=== PATIENT | female | born 1995 | race African-American/Black ===

== ENCOUNTER 2017-01-17 21:21 | Emergency (ER) | payer BC ==
[~2017-01-17] VITALS: Ht 165.1 cm; Wt 52.2 kg
[2017-01-17 21:43] VITALS: TEMP 36.7; Ht 165.1 cm; Wt 52.2 kg
[2017-01-17] MEDS ORDERED: SODIUM CHLORIDE 0.9% 1000ML 1,000 ML IV STA (21:53)
[2017-01-17] MEDS ORDERED: METF-383 PO (22:05)
[2017-01-17] MEDS ORDERED: BCPILLS PO (22:05)
[2017-01-17] MEDS ORDERED: SPIR100T PO (22:05)
[2017-01-17 22:11] LABS: BASO % 0.5 %; BASO ABS # 0.05 K/uL (0-0.2); COMPLETE YES; EOS % 4.5 %; HEMATOCRIT 39.9 % (37-47); IG% 0.2 %; LYMPH % 28.4 %; LYMPH ABS # 2.59 K/uL (1.2-3.4); MEAN CELL VOLUME 92.8 fL (80-100); MEAN CORPUSCULAR HEMOGLOBIN 31.4 pg (25-34); MEAN CORPUSCULAR HGB CONC 33.8 g/dl (32-36); MEAN PLATELET VOLUME 8.6 fL (7.4-10.4); MONO % 9.6 %; NEUT % 56.8 %; PLATELET COUNT 292 K/uL (130-400); WHITE BLOOD COUNT 9.12 K/uL (4.8-10.8)
[2017-01-17 22:29] LABS: BLOOD UREA NITROGEN 10 mg/dl (7-18); BUN/CREATININE RATIO 16.1 (10-20); CARBON DIOXIDE 28 mmol/L (21-32); CHLORIDE 106 mmol/L (98-107); CREATININE 0.61 mg/dl (0.60-1.20); GLUCOSE 86 mg/dl (70-99); POTASSIUM 3.9 mmol/L (3.5-5.1); SODIUM 142 mmol/L (136-145)
[2017-01-17 22:33] LABS: URINE APPEARANCE CLEAR (CLEAR); URINE BILIRUBIN NEG (NEG); URINE COLOR YELLOW; URINE NITRITE NEG (NEG); URINE SPECIFIC GRAVITY 1.025 (1.000-1.030); UROBILINOGEN NEG (NEG)
[2017-01-17 22:35] LABS: PREG INTERNAL NEGATIVE QC NEG CLEAR BACKGROUND; PREG INTERNAL POSITIVE QC POS CONTROL LINE
[2017-01-17 22:36] LABS: MANUAL MICROSCOPIC REQUIRED? NO; REVIEW REQ? NO
--- NOTE | 2017-01-18 00:22 | EMERGENCY ROOM VISIT NOTE ---
History Report prepared by Scribe: Anayeli Jones Under the Supervision of: Dr. Von Camarena D.O. First contact with patient: 21:47 Chief Complaint: ABDOMINAL PAIN Stated Complaint: INTENSE STOMACH PAIN ON RIGHT SIDE History of Present Illness The patient is a 21 year old female who presents to the Emergency Room with complaints of persistent right sided abdominal pain that started approximately 1 hour prior to arrival. She rates her discomfort as a 7/10 in severity. She admits to a history of PCOS but states she has never experienced pain like today 's before. She called her Mother, who is a nurse, and states she told her to come to the ED for further evaluation. She also admits to nausea and a decreased appetite, but she has not vomited. She denies any back pain. Her last menstrual period was 2 and a half weeks ago and normal. She is currently sexually active. 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 A total of 10 systems reviewed and were otherwise negative. Past Medical & Surgical Medical Problems: (1) PCOS (polycystic ovarian syndrome) Social History Smoking Status: Never Smoker Alcohol Use: occasionally Drug Use: none Marital Status: single Housing Status: lives with roommate Occupation Status: [employer] student Current/Historical Medications Scheduled Control Pills ( Control Pills), 1 TAB PO DAILY Metformin Hcl (Glucophage), 850 MG PO DAILY Spironolactone (Aldactone), 100 MG PO DAILY Allergies Coded Allergies: Clindamycin (Verified Allergy, Intermediate, Hives, 01/17/17) Physical Exam Vital Signs Date Time Temp Pulse Resp B/P Pulse Ox O2 Delivery O2 Flow Rate FiO2 01/17/17 23:14 93 18 131/75 100 Room Air 01/17/17 21:43 36.7 73 18 116/79 98 Room Air Physical Exam CONSTITUTIONAL/VITAL SIGNS: Reviewed / noted above. GENERAL: Non-toxic in appearance. INTEGUMENTARY: Warm, dry, and [place]. HEAD: Normocephalic. EYES: without scleral icterus or trauma. ENT/OROPHARYNX: clear and moist. LYMPHADENOPATHY/NECK: Is supple without lymphadenopathy or meningismus. RESPIRATORY: Lungs clear and equal. CARDIOVASCULAR: Regular rate and rhythm. GI/ABDOMEN: Soft, tenderness to palpation in RLQ. No organomegaly or pulsatile mass. No rebound or guarding. Normal bowel sounds. EXTREMITIES: Warm and well perfused. BACK: No CVA tenderness. NEUROLOGICAL: Intact without focal deficits. PSYCHIATRIC: normal affect. MUSCULOSKELETAL: Normally developed with good muscle tone. Medical Decision & Procedures ER Provider Diagnostic Interpretation: This CT scan was reviewed and interpreted by the radiologist and reviewed by myself. CT ABDOMEN/PELVIS Limited non-contrast evaluation. No evidence of solid organ abnormality. No evidence of bowel obstruction. Visualized appendix normal. No diverticulitis. Fluid-filled loops of small bowel may indicate nonspecific enteritis. Urinary bladder and uterus are within normal limits. Mild low-density free pelvic fluid may be physiologic or related to cyst rupture. No acute osseous findings. Radiologist: Dr. Mary Juarez MD Phone: [phone] This Ultrasound was reviewed and interpreted by the radiologist and reviewed by myself. US PELVIS: The uterus measures 6.9 x 4.5 x 4.1 cm with 7 mm thick endometrial echo complex. There is no abnormal myometrial mass. There is mild free pelvic fluid. Right ovary measures 23 x 19 x 12 mm with Doppler flow. Left ovary measures 53 x 36 x 37 mm with Doppler flow. There is a 27 x 28 x 28 mm complex left ovarian cyst without vascularity having the appearance of a hemorrhagic cyst. There is no evidence of abnormal adnexal mass. Radiologist: Mary Juarez M.D. Laboratory Results 01/17/17 22:00 Red Blood Count 4.30, Mean Corpuscular Volume 92.8, Mean Corpuscular Hemoglobin 31.4, Mean Corpuscular Hemoglobin Concent 33.8, Mean Platelet Volume 8.6, Neutrophils (%) (Auto) 56.8, Lymphocytes (%) (Auto) 28.4, Monocytes (%) (Auto) 9.6, Eosinophils (%) (Auto) 4.5, Basophils (%) (Auto) 0.5, Neutrophils # (Auto) 5.17, Lymphocytes # (Auto) 2.59, Monocytes # (Auto) 0.88, Eosinophils # (Auto) 0.41, Basophils # (Auto) 0.05 01/17/17 22:00 Test 01/17/17 21:58 01/17/17 22:00 Urine Color YELLOW Urine Appearance CLEAR (CLEAR) Urine pH 7.0 (4.5-7.5) Urine Specific [place] 1.025 (1.000-1.030) Urine Protein NEG (NEG) Urine Glucose (UA) NEG (NEG) Urine Ketones NEG (NEG) Urine Occult Blood NEG (NEG) Urine Nitrite NEG (NEG) Urine Bilirubin NEG (NEG) Urine Urobilinogen NEG (NEG) Urine Leukocyte Esterase NEG (NEG) Urine Test NEG (NEG) White Blood Count 9.12 K/uL (4.8-10.8) Red Blood Count 4.30 M/uL (4.2-5.4) Hemoglobin 13.5 g/dL (12.0-16.0) Hematocrit 39.9 % (37-47) Mean Corpuscular Volume 92.8 fL (80-100) Mean Corpuscular Hemoglobin 31.4 pg (25-34) Mean Corpuscular Hemoglobin Concent 33.8 g/dl (32-36) Platelet Count 292 K/uL (130-400) Mean Platelet Volume 8.6 fL (7.4-10.4) Neutrophils (%) (Auto) 56.8 % Lymphocytes (%) (Auto) 28.4 % Monocytes (%) (Auto) 9.6 % Eosinophils (%) (Auto) 4.5 % Basophils (%) (Auto) 0.5 % Neutrophils # (Auto) 5.17 K/uL (1.4-6.5) Lymphocytes # (Auto) 2.59 K/uL (1.2-3.4) Monocytes # (Auto) 0.88 K/uL (0.11-0.59) Eosinophils # (Auto) 0.41 K/uL (0-0.5) Basophils # (Auto) 0.05 K/uL (0-0.2) RDW Standard Deviation 42.2 fL (36.4-46.3) RDW Coefficient of Variation 12.5 % (11.5-14.5) Immature Granulocyte % (Auto) 0.2 % Immature Granulocyte # (Auto) 0.02 K/uL (0.00-0.02) Anion Gap 8.0 mmol/L (3-11) Est Creatinine Clear Calc Drug Dose 121.2 ml/min Estimated GFR () > 150.0 Estimated GFR (Non- 130.5 BUN/Creatinine Ratio 16.1 (10-20) Calcium Level 9.0 mg/dl (8.5-10.1) Human Chorionic Gonadotropin, Qual NEG (NEG) Laboratory results as stated above per my review. Medications Administered Medications (Trade) Dose Ordered Sig/Ever Route Start Time Stop Time Status Last Admin Dose Admin Sodium Chloride (Nss 1000ml) 1,000 ml @ 999 mls/hr Q1H1M STAT IV 01/17/17 21:53 01/17/17 22:53 DC 01/17/17 22:07 999 MLS/HR ED Course 2136: Previous medical records were reviewed. The patient was evaluated in room A3. A complete history and physical examination was performed. 2152: NSS 1000 ml @ 999 mls/hr IV. 0010: I reevaluated the patient. She is feeling well. I discussed her results and discharge instructions and she verbalized complete understanding and agreement. Medical Decision Differential considered: pancreatitis, hepatitis, or acute cholecystitis, AAA, UTI, pyelonephritis, kidney stones, appendicitis, diverticulitis, shingles, bowel obstruction mesenteric ischemia, intussusception,hernia, ovarian torsion, ruptured ovarian cyst, ectopic , . This is a 21-year-old female who presents to the ED with a chief complaint of a sudden onset right lower quadrant abdominal pain about an hour prior to her arrival. The patient has a history of PE 0 a speed she reports some associated nausea and vomiting. Her vital signs are normal. Physical exam was noted above. There is some right lower quadrant abdominal tenderness. CBC is normal. PRP is normal. HCG was negative. Urine does not show infection. test is negative. CT scan of the abdomen and pelvis was negative for acute disease. Ultrasound reveals no in PCOS. There is good blood flow. The patient was told the results. She was felt to be stable for discharge. She did not want pain medication. Impression Primary Impression: PCOS (polycystic ovarian syndrome) Scribe Attestation The scribe's documentation has been prepared under my direction and personally reviewed by me in its entirety. I confirm that the note above accurately reflects all work, treatment, procedures, and medical decision making performed by me. Departure Information Dispostion Home / Self-Care Patient Instructions [facility] Additional Instructions Follow-up with your doctor for further care and evaluation in 1-2 days. Return to the emergency department for worsening or new symptoms or any concerns. You have been examined and treated today on an emergency basis only. This is not a substitute for, or an effort to provide, complete comprehensive medical care. It is impossible to recognize and treat all injuries or illnesses in a single emergency department visit. It is therefore important that you follow up closely with your doctor. Call as soon as possible for an appointment.
[2017-01-18 00:37] VITALS: BP 107/65; PULSE 86; O2SAT 97
--- NOTE | 2017-01-18 06:30 | DIAGNOSTIC IMAGING REPORT ---
EXAMINATION: PELVIC ULTRASOUND CLINICAL HISTORY: Right-sided pelvic pain COMPARISON STUDY: None FINDINGS: The uterus measured 6.9 x 4.5 x 4.1 cm. The endometrial stripe measured 7 mm. The right ovary measured 23 x 19 x 12 mm. The left ovary measured 53 x 36 x 37 mm. There is a 28 mm complex cyst likely functional.. There is no ultrasonographic evidence of ovarian torsion. It should be noted that ovarian torsion can be present with normal Doppler ultrasonographic findings. There is a minimal amount of free fluid present. The patient refused endovaginal scanning. IMPRESSION: 28 mm complex left ovarian cyst, likely representing a hemorrhagic cyst Electronically signed by: Keaton Estrada M.D. 01/18/2017 6:28 AM Dictated Date/Time: 01/18/2017 6:26 AM
--- NOTE | 2017-01-18 06:38 | DIAGNOSTIC IMAGING REPORT ---
CT SCAN OF THE ABDOMEN AND PELVIS WITHOUT CONTRAST CLINICAL HISTORY: Sudden onset of right lower quadrant pain COMPARISON STUDY: Pelvic ultrasound dated 01/17/2017 TECHNIQUE: CT scan of the abdomen and pelvis was performed from the lung bases to the proximal femurs. Images are reviewed in the axial, sagittal, and coronal planes. IV contrast was not administered for this examination. CT DOSE: 361.32 mGy.cm FINDINGS: Lower chest: The heart is normal in size and configuration, without pericardial effusion. The lung bases and pleural spaces are clear. Liver: The unenhanced liver is normal in size, contour, and attenuation. There is no intrahepatic biliary ductal dilatation. Gallbladder: Unremarkable. Spleen: Normal in size and attenuation. Pancreas: Unremarkable. Adrenal glands: Unremarkable. Kidneys: No renal, ureteral, or bladder calculi are visualized. Bowel: There are no transition zones indicate bowel obstruction. There is no evidence of acute appendicitis given the limitations of a noncontrast study. There is no evidence of acute diverticulitis Peritoneum: No free air is visualized. There is a small amount of free pelvic fluid Vasculature: The abdominal aorta is normal in course and caliber. Adenopathy: None. Pelvic viscera: The bladder, and pelvic viscera are unremarkable. Skeletal structures: No destructive osseous lesions are seen. IMPRESSION: 1. No evidence of bowel obstruction. No evidence of free air 2. No renal, ureteral, or bladder calculi identified 3. No evidence of acute appendicitis 4. Small amount of free fluid in the pelvis Electronically signed by: Keaton Estrada M.D. 01/18/2017 6:36 AM Dictated Date/Time: 01/18/2017 6:33 AM
== END 2017-01-18 00:38 | disposition home or self-care (01) ==
LOC: C.EDB 21:23 → C.EDA 01-18 00:38
DX: E28.2 Polycystic ovarian syndrome (principal); Z79.3 Long term (current) use of hormonal contraceptives; Z79.899 Other long term (current) drug therapy

== ENCOUNTER 2021-01-17 02:08 | Inpatient (IN) ==
[2021-01-17] MEDS ORDERED: OXYTOCIN 30 UNITS/500 ML BAG IV PRN (02:31)
[2021-01-17] MEDS ORDERED: BUTORPHANOL TARTRATE 1 MG/ML VIAL IV ONE (02:36)
[2021-01-17] MEDS ORDERED: ePHEDrine sulfate 50 MG/ML AMP ONE (02:49)
[2021-01-17] MEDS ORDERED: BUPIVACAINE 0.25% 30 ML VIAL ONE (02:49)
[2021-01-17] MEDS ORDERED: fentaNYL citrate 100 MCG/2 ML VIAL ONE (02:49)
[2021-01-17] MEDS ORDERED: SODIUM CHLORIDE 0.9% INJ 10 ML VIAL ONE (02:49)
[2021-01-17] MEDS ORDERED: fentaNYL 2MCG/ML ROPIVACAINE 1.25MG/ML 100 ML BAG EPI ONE (02:50)
[2021-01-17 02:55] LABS: Hematocrit (blood only) 35.1 % (37-47); Hemoglobin 12.1 g/dL (12.0-16.0); Mean Corpuscular Hgb Conc 34.5 g/dL (32-36); Mean Platelet Volume 9.7 fL (7.4-10.4); Platelet Count 379 K/uL (130-400); RDW Coefficient of Variation 13.1 % (11.5-14.5); RDW Standard Deviation 42.7 fL (36.4-46.3); White Blood Count 12.82 K/uL (4.8-10.8)
[2021-01-17] MEDS: LACTATED RINGER'S 1,000 ML IV PRN ×3 (03:03→15:34)
--- NOTE | 2021-01-17 03:47 | Anesthesiology Consultation ---
Date of Service January 17, 2021 Assessment & Plan Chart Review Chart Review: Acceptable Risk for Labor Epidural Consults Requested none History Height/Weight Height: 5 ft 5 in Weight: 71.668 kg Allergies Allergy/AdvReac Type Severity Reaction Status Date / Time clindamycin Allergy Intermediate Hives Verified 01/15/21 08:51 Sulfa (Sulfonamide Allergy hives Verified 01/15/21 08:51 Antibiotics) Medications Home Medications Medication Instructions Recorded Confirmed Last Taken prenat.vits,akash,uzr-kjmh-glfzk 1 tab PO DAILY 06/12/20 01/16/21 01/16/21 08:00 Active Medications Generic Name Dose Route Start Last Admin Trade Name Freq PRN Reason Stop Dose Admin Lactated Ringer's 1,000 mls @ 125 mls/hr 01/17/21 02:31 01/17/21 03:37 Lr IV 01/19/21 02:30 125 mls/hr .Q8H PRN Infusion L&D Protocol Protocol Past Medical History Medical History No significant past medical history Past Family History Family History Grandmother (Maternal) Heart disease Past Surgical History Surgical History S/P wisdom tooth extraction Social History Smoking Status: Never smoker Hx Alcohol Use: No Hx Substance Use: No Physical Exam Vital Signs Last Vital Signs Temp 37.0 C 01/17/21 02:51 Pulse 96 H 01/17/21 03:44 Resp 18 01/17/21 02:39 BP 115/64 01/17/21 03:44 Pulse Ox 99 01/17/21 03:40 Testing Laboratory Results 01/17/21 02:43
[2021-01-17] MEDS ORDERED: NALOXONE HCL 0.4 MG/1 ML VIAL/CARP IV PRN (03:49)
[2021-01-17] MEDS ORDERED: diphenhydrAMINE 50 MG/ML VIAL IV PRN (03:49)
[2021-01-17] MEDS ORDERED: ePHEDrine sulfate 50 MG/ML AMP IV PRN (03:49)
[2021-01-17] MEDS ORDERED: NALOXONE HCL 1 MG in SODIUM CHLORIDE 0.9% 1000ML 1,000 ML IV PRN (03:49)
--- NOTE | 2021-01-17 05:06 | History & Physical Report ---
Date of Service January 17, 2021 Assessment & Plan (1) Normal labor: Admission and Anticipated Discharge Date Admission Date: January 17, 2021 Admit for labor. Patient now has epidural and is sleeping. Expectant management for now. Fetus category one. Anticipate vaginal delivery. History of Present Illness Chief Complaint: contractions Primary Care Provider: NO PCP Patient is a 25yowf with iup at 39 1/7 weeks who presents back to labor and delivery with increased contractions and increased pain. no vb/lof. +fm. uncomplicated. Was just in labor and delivery and was /-2. Patient established care here, then was in h[facility] for a few weeks and reestablished at 24 weeks. Patient had previously desired an unmedicated and noninterventional but now would like an epidural. labs--A+/ab-/ri/rprnr/hiv-/hep-/gc/ct -/ 28 week gtt failed with nl 2 hr/gbs neg/ declined genetics/cf/sma. Allergies Allergy/AdvReac Type Severity Reaction Status Date / Time clindamycin Allergy Intermediate Hives Verified 01/15/21 08:51 Sulfa (Sulfonamide Allergy hives Verified 01/15/21 08:51 Antibiotics) Home Medications Medication Instructions Recorded Confirmed Type prenat.vits,akash,bhx-xyir-auech 1 tab PO DAILY 06/12/20 01/16/21 History Patient History Medical History No significant past medical history Surgical History S/P wisdom tooth extraction Family History Grandmother (Maternal) Heart disease Social History Smoking Status: Never smoker Hx Alcohol Use: No Hx Substance Use: No Preferred Language: Nepali Senior Clinical Research Associate Required: Voice Beliefs That Will Affect Care: None marital status: marital status details: Braeden (24) [phone] Current Living Situation: Spouse and Other Current Living Situation Comment: [facility] 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 toco--q2-5min efm--120s with mod variability, accels present, no decels Results & Data ([facility]) Vital Signs (Past 12 Hours) Vital Signs Temp Pulse Resp BP Pulse Ox 01/17/21 05:00 79 98 01/17/21 04:59 93 H 114/68 01/17/21 04:55 90 98 01/17/21 04:50 85 98 01/17/21 04:45 83 112/66 98 01/17/21 04:40 82 96 01/17/21 04:35 69 97 01/17/21 04:30 91 H 115/73 98 01/17/21 04:25 88 99 01/17/21 04:20 86 100 01/17/21 04:15 79 127/75 98 01/17/21 04:10 79 99 01/17/21 04:05 89 97 01/17/21 04:00 91 H 98 01/17/21 03:59 85 121/68 01/17/21 03:55 36.9 C 83 18 97 01/17/21 03:51 87 93 01/17/21 03:50 84 18 97 01/17/21 03:45 89 18 98 01/17/21 03:44 96 H 115/64 01/17/21 03:42 85 125/73 01/17/21 03:40 87 18 121/69 99 01/17/21 03:38 78 121/71 01/17/21 03:35 91 H 18 119/75 96 01/17/21 03:34 79 130/81 01/17/21 03:30 80 18 98 01/17/21 03:25 88 98 01/17/21 02:51 37.0 C 01/17/21 02:39 37.0 C 81 18 125/69 01/17/21 02:30 37.0 C 18 01/17/21 02:21 81 125/69 Code Status & VTE Plan VTE Prophylaxis Plan VTE Prophylaxis will be ordered: No Coding Level of Care Code None Diagnoses Normal labor O80; Z37.9
--- NOTE | 2021-01-17 10:56 | Labor Progress Brief Note ---
Date of Service January 17, 2021 Subjective Patient, FOB and Rac Specialist met in room. Patient comfortable with epidural. Assessment & Plan (1) Normal labor: Patient counseled on lack of progress (not going backwards; difference in opinion between examiners / first exam likely difficult with patient reportedly in extreme pain on arrival). Discussed this is not unexpected with contractions so far apart and epidural running / no augmentation thus far. Discussed various options including AROM, pitocin. At this time she refuses all augmentation and requests re-exam in 2 hours. Did discuss risks of prolonged labor for both mom and baby, and possibility that labor has stopped, in which case the eventual plan if we don't augment would be to discontinue epidural and discharge patient home to await resumption of labor at a different time. Nothing has yet occurred that commits her fully to delivery (membranes remain intact and status reassuring). Also discussed that there is no timeline for delivery, but rather advice is based on balancing medical risks and benefits for mother and baby, and all choices rest with her. She voices understanding. Admission and Anticipated Discharge Date Admission Date: January 17, 2021 Physical Exam Physical Exam: 4/100/-2 bulging bag FHT Cat 1 [facility] Q4 Results & Data ([facility]) Vital Signs (Past 12 Hours) Vital Signs Temp Pulse Resp BP Pulse Ox 01/17/21 10:45 83 127/70 97 01/17/21 10:41 87 92 01/17/21 10:40 76 98 01/17/21 10:35 76 100 01/17/21 10:30 71 96 01/17/21 10:25 78 98 01/17/21 10:20 79 99 01/17/21 10:16 82 120/72 01/17/21 10:15 82 98 01/17/21 10:10 75 97 01/17/21 10:07 81 93 01/17/21 10:05 75 97 01/17/21 10:01 84 92 01/17/21 10:00 78 98 01/17/21 09:59 74 115/70 01/17/21 09:55 78 93 01/17/21 09:50 70 98 01/17/21 09:45 83 109/64 97 01/17/21 09:41 80 94 01/17/21 09:40 86 98 01/17/21 09:35 79 98 01/17/21 09:31 70 111/66 01/17/21 09:30 69 97 01/17/21 09:25 80 96 01/17/21 09:22 89 94 01/17/21 09:20 78 97 01/17/21 09:15 77 123/79 98 01/17/21 09:10 75 97 01/17/21 09:05 79 96 01/17/21 09:03 98 H 93 01/17/21 09:00 86 116/67 95 01/17/21 08:55 102 H 97 01/17/21 08:50 81 97 01/17/21 08:45 81 119/75 98 01/17/21 08:40 85 96 01/17/21 08:35 87 98 01/17/21 08:30 79 114/76 97 01/17/21 08:25 80 95 01/17/21 08:20 83 97 01/17/21 08:15 76 117/74 96 01/17/21 08:10 81 96 01/17/21 08:05 75 96 01/17/21 08:01 77 115/74 01/17/21 08:00 76 96 01/17/21 07:55 85 99 01/17/21 07:50 81 97 01/17/21 07:45 77 97 01/17/21 07:44 75 116/73 01/17/21 07:40 78 97 01/17/21 07:38 81 93 01/17/21 07:35 89 96 01/17/21 07:30 89 97 01/17/21 07:29 131 H 116/77 01/17/21 07:25 88 97 01/17/21 07:20 81 98 01/17/21 07:19 98.8 F 80 20 122/70 01/17/21 07:15 80 96 01/17/21 07:14 85 92 01/17/21 07:10 83 98 01/17/21 07:06 88 92 01/17/21 07:05 79 99 01/17/21 07:00 87 107/71 98 01/17/21 06:55 82 97 01/17/21 06:50 88 97 01/17/21 06:46 74 18 114/70 01/17/21 06:45 71 97 01/17/21 06:40 101 H 98 01/17/21 06:39 96 H 92 01/17/21 06:35 88 99 01/17/21 06:31 75 121/69 01/17/21 06:30 89 100 01/17/21 06:25 82 97 01/17/21 06:20 90 98 01/17/21 06:15 75 99 01/17/21 06:14 88 116/64 01/17/21 06:10 96 H 99 01/17/21 06:05 80 98 01/17/21 06:01 71 118/66 01/17/21 06:00 71 98 01/17/21 05:55 84 98 01/17/21 05:50 83 98 01/17/21 05:45 79 98 01/17/21 05:44 96 H 111/69 01/17/21 05:40 75 96 01/17/21 05:35 83 98 01/17/21 05:30 82 18 117/68 97 01/17/21 05:25 73 97 01/17/21 05:20 69 97 01/17/21 05:15 84 120/70 98 01/17/21 05:10 74 98 01/17/21 05:05 82 99 01/17/21 05:00 79 18 98 01/17/21 04:59 93 H 114/68 01/17/21 04:55 90 98 01/17/21 04:50 85 98 01/17/21 04:45 83 112/66 98 01/17/21 04:40 82 96 01/17/21 04:35 69 97 01/17/21 04:30 91 H 18 115/73 98 01/17/21 04:25 88 99 01/17/21 04:20 86 100 01/17/21 04:15 79 18 127/75 98 01/17/21 04:10 79 99 01/17/21 04:05 89 97 01/17/21 04:00 91 H 18 98 01/17/21 03:59 85 121/68 01/17/21 03:55 98.4 F 83 18 97 01/17/21 03:51 87 93 01/17/21 03:50 84 18 97 01/17/21 03:45 89 18 98 01/17/21 03:44 96 H 115/64 01/17/21 03:42 85 125/73 01/17/21 03:40 87 18 121/69 99 01/17/21 03:38 78 121/71 01/17/21 03:35 91 H 18 119/75 96 01/17/21 03:34 79 130/81 01/17/21 03:30 80 18 98 01/17/21 03:25 88 98 01/17/21 02:51 98.6 F 01/17/21 02:39 98.6 F 81 18 125/69 01/17/21 02:30 98.6 F 18 01/17/21 02:21 81 125/69 Coding Level of Care Code None Diagnoses Normal labor O80; Z37.9
[2021-01-17] MEDS: fentaNYL 2MCG/ML ROPIVACAINE 1.25MG/ML 100 ML BAG EPI PRN ×2 (11:57→17:43)
--- NOTE | 2021-01-17 12:50 | Labor Progress Brief Note ---
Date of Service January 17, 2021 Subjective Comfortable with epidural. 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 Thinks her water may have just broken spontaneously; felt a gush! Assessment & Plan Admission and Anticipated Discharge Date Admission Date: January 17, 2021 Physical Exam Physical Exam: Deferred at this time. Given SROM, clearly the labor progress has not stopped completely. Offered exam vs wait for now, and patient was comfortable deferring exam. FHT Cat 1 [place] Q2-4m irreg. Results & Data ([facility]) Vital Signs (Past 12 Hours) Vital Signs Temp Pulse Resp BP Pulse Ox 01/17/21 12:30 73 118/63 97 01/17/21 12:26 84 94 01/17/21 12:25 89 93 01/17/21 12:21 77 94 01/17/21 12:20 78 94 01/17/21 12:16 77 94 01/17/21 12:15 74 130/88 94 01/17/21 12:10 71 96 01/17/21 12:05 75 96 01/17/21 12:02 93 H 93 01/17/21 12:00 76 121/71 97 01/17/21 11:55 74 97 01/17/21 11:50 76 97 01/17/21 11:45 74 116/72 98 01/17/21 11:40 80 97 01/17/21 11:35 74 98 01/17/21 11:30 78 103/61 97 01/17/21 11:25 74 96 01/17/21 11:23 88 92 01/17/21 11:20 81 97 01/17/21 11:15 78 96 01/17/21 11:14 93 H 128/83 94 01/17/21 11:10 79 97 01/17/21 11:05 76 96 01/17/21 11:00 74 98 01/17/21 10:59 98.4 F 75 20 126/79 01/17/21 10:55 75 98 01/17/21 10:50 80 98 01/17/21 10:45 83 127/70 97 01/17/21 10:41 87 92 01/17/21 10:40 76 98 01/17/21 10:35 76 100 01/17/21 10:30 71 96 01/17/21 10:25 78 98 01/17/21 10:20 79 99 0421 10:16 82 120/72 0421 10:15 82 98 01/17/21 10:10 75 97 01/17/21 10:07 81 93 01/17/21 10:05 75 97 01/17/21 10:01 84 92 01/17/21 10:00 78 20 98 01/17/21 09:59 74 115/70 01/17/21 09:55 78 93 01/17/21 09:50 70 98 01/17/21 09:45 83 109/64 97 01/17/21 09:41 80 94 01/17/21 09:40 86 98 01/17/21 09:35 79 98 01/17/21 09:31 70 111/66 01/17/21 09:30 69 97 01/17/21 09:25 80 96 01/17/21 09:22 89 94 01/17/21 09:20 78 97 01/17/21 09:15 77 123/79 98 01/17/21 09:10 75 97 01/17/21 09:05 79 96 01/17/21 09:03 98 H 18 93 01/17/21 09:00 86 116/67 95 01/17/21 08:55 102 H 97 01/17/21 08:50 81 97 01/17/21 08:45 81 119/75 98 01/17/21 08:40 85 96 01/17/21 08:35 87 98 01/17/21 08:30 79 114/76 97 01/17/21 08:25 80 95 01/17/21 08:20 83 97 01/17/21 08:15 76 117/74 96 21 08:10 81 96 21 08:05 75 96 0421 08:01 77 20 115/74 042421 08:00 76 96 01/17/21 07:55 85 99 01/17/21 07:50 81 97 01/17/21 07:45 77 97 21 07:44 75 116/73 0421 07:40 78 97 21 07:38 81 93 21 07:35 89 96 01/17/21 07:30 89 97 01/17/21 07:29 131 H 116/77 01/17/21 07:25 88 97 01/17/21 07:20 81 98 01/17/21 07:19 98.8 F 80 20 122/70 01/17/21 07:15 80 96 01/17/21 07:14 85 92 01/17/21 07:10 83 98 01/17/21 07:06 88 92 01/17/21 07:05 79 99 01/17/21 07:00 87 107/71 98 01/17/21 06:55 82 97 01/17/21 06:50 88 97 01/17/21 06:46 74 18 114/70 01/17/21 06:45 71 97 01/17/21 06:40 101 H 98 01/17/21 06:39 96 H 92 01/17/21 06:35 88 99 01/17/21 06:31 75 121/69 01/17/21 06:30 89 100 01/17/21 06:25 82 97 01/17/21 06:20 90 98 01/17/21 06:15 75 99 01/17/21 06:14 88 116/64 01/17/21 06:10 96 H 99 01/17/21 06:05 80 98 01/17/21 06:01 71 118/66 01/17/21 06:00 71 98 01/17/21 05:55 84 98 01/17/21 05:50 83 98 01/17/21 05:45 79 98 01/17/21 05:44 96 H 111/69 01/17/21 05:40 75 96 01/17/21 05:35 83 98 01/17/21 05:30 82 18 117/68 97 01/17/21 05:25 73 97 01/17/21 05:20 69 97 01/17/21 05:15 84 120/70 98 01/17/21 05:10 74 98 01/17/21 05:05 82 99 01/17/21 05:00 79 18 98 01/17/21 04:59 93 H 114/68 01/17/21 04:55 90 98 01/17/21 04:50 85 98 01/17/21 04:45 83 112/66 98 01/17/21 04:40 82 96 01/17/21 04:35 69 97 01/17/21 04:30 91 H 18 115/73 98 01/17/21 04:25 88 99 01/17/21 04:20 86 100 01/17/21 04:15 79 18 127/75 98 01/17/21 04:10 79 99 01/17/21 04:05 89 97 01/17/21 04:00 91 H 18 98 01/17/21 03:59 85 121/68 01/17/21 03:55 98.4 F 83 18 97 01/17/21 03:51 87 93 01/17/21 03:50 84 18 97 01/17/21 03:45 89 18 98 01/17/21 03:44 96 H 115/64 01/17/21 03:42 85 125/73 01/17/21 03:40 87 18 121/69 99 01/17/21 03:38 78 121/71 01/17/21 03:35 91 H 18 119/75 96 01/17/21 03:34 79 130/81 01/17/21 03:30 80 18 98 01/17/21 03:25 88 98 01/17/21 02:51 98.6 F 01/17/21 02:39 98.6 F 81 18 125/69 01/17/21 02:30 98.6 F 18 01/17/21 02:21 81 125/69 Coding Level of Care Code None
[2021-01-17] MEDS ORDERED: NURSING L&D Epidural Breakthrough Pain Update ONE (17:34)
--- NOTE | 2021-01-17 18:37 | Labor Progress Brief Note ---
Date of Service January 17, 2021 Subjective Comfortable with epidural Assessment & Plan Admission and Anticipated Discharge Date Admission Date: January 17, 2021 Physical Exam Physical Exam: FHT Cat 2 [place] Q2 min ant lip/100/+1 Results & Data ([facility]) Vital Signs (Past 12 Hours) Vital Signs Temp Pulse Resp BP Pulse Ox 01/17/21 18:31 91 H 93 01/17/21 18:30 85 99 01/17/21 18:25 76 99 01/17/21 18:20 81 98 01/17/21 18:18 88 91 01/17/21 18:15 94 H 121/60 100 01/17/21 18:10 78 100 01/17/21 18:05 79 98 01/17/21 18:02 84 91 01/17/21 18:00 78 100 01/17/21 17:59 95 H 118/76 01/17/21 17:55 91 H 97 01/17/21 17:50 89 98 01/17/21 17:45 77 100 01/17/21 17:44 99.0 F 85 20 122/77 01/17/21 17:42 95 H 93 01/17/21 17:40 79 99 01/17/21 17:35 103 H 98 01/17/21 17:30 86 133/81 97 01/17/21 17:29 94 H 93 01/17/21 17:25 85 99 01/17/21 17:20 76 100 01/17/21 17:15 77 123/74 98 01/17/21 17:10 95 H 98 01/17/21 17:05 74 98 01/17/21 17:00 87 100 01/17/21 16:59 94 H 115/79 01/17/21 16:55 81 98 01/17/21 16:50 84 99 01/17/21 16:46 77 20 121/74 01/17/21 16:45 74 99 01/17/21 16:40 71 100 01/17/21 16:35 90 100 01/17/21 16:30 89 123/83 99 01/17/21 16:25 106 H 99 01/17/21 16:24 83 93 01/17/21 16:20 78 99 01/17/21 16:15 74 132/77 98 01/17/21 16:10 74 98 01/17/21 16:05 70 99 01/17/21 16:00 67 99 01/17/21 15:59 66 117/72 01/17/21 15:55 71 99 01/17/21 15:50 71 100 01/17/21 15:45 98.8 F 74 20 136/84 99 01/17/21 15:40 82 99 01/17/21 15:35 76 99 01/17/21 15:32 76 132/70 01/17/21 15:30 90 100 01/17/21 15:25 70 99 01/17/21 15:20 75 99 01/17/21 15:15 72 125/71 100 01/17/21 15:10 71 99 01/17/21 15:05 69 99 01/17/21 15:00 64 118/68 99 01/17/21 14:55 74 99 01/17/21 14:50 81 99 01/17/21 14:45 75 20 119/82 99 01/17/21 14:42 90 89 L 01/17/21 14:40 80 95 01/17/21 14:36 81 92 01/17/21 14:35 64 96 01/17/21 14:30 98.8 F 71 20 139/84 97 01/17/21 14:25 77 97 01/17/21 14:23 78 93 01/17/21 14:20 65 97 01/17/21 14:18 103 H 94 01/17/21 14:15 81 91 01/17/21 14:12 91 H 91 01/17/21 14:10 87 95 01/17/21 14:05 85 98 01/17/21 14:03 96 H 91 01/17/21 14:00 77 83 L 01/17/21 13:57 74 93 01/17/21 13:55 84 92 01/17/21 13:52 74 94 01/17/21 13:50 79 96 01/17/21 13:46 88 92 01/17/21 13:45 70 96 01/17/21 13:44 68 128/80 01/17/21 13:40 69 96 01/17/21 13:38 73 94 01/17/21 13:35 73 95 01/17/21 13:32 74 94 01/17/21 13:30 75 131/84 96 01/17/21 13:27 74 91 01/17/21 13:25 70 96 01/17/21 13:20 71 94 01/17/21 13:15 71 126/80 95 01/17/21 13:11 76 93 01/17/21 13:10 74 97 01/17/21 13:05 68 98 01/17/21 13:01 73 107/61 01/17/21 13:00 73 95 01/17/21 12:57 68 93 01/17/21 12:55 69 97 01/17/21 12:50 68 96 01/17/21 12:46 68 112/59 L 01/17/21 12:45 68 98 01/17/21 12:40 71 97 01/17/21 12:35 71 98 01/17/21 12:30 73 118/63 97 01/17/21 12:26 84 94 01/17/21 12:25 89 93 01/17/21 12:21 77 94 01/17/21 12:20 78 94 01/17/21 12:16 77 94 01/17/21 12:15 74 130/88 94 01/17/21 12:10 71 96 01/17/21 12:05 75 96 01/17/21 12:02 93 H 93 01/17/21 12:00 76 121/71 97 01/17/21 11:55 74 97 01/17/21 11:50 76 97 01/17/21 11:45 74 116/72 98 01/17/21 11:40 80 97 01/17/21 11:35 74 98 01/17/21 11:30 78 103/61 97 01/17/21 11:25 74 96 01/17/21 11:23 88 92 01/17/21 11:20 81 97 01/17/21 11:15 78 96 01/17/21 11:14 93 H 128/83 94 01/17/21 11:10 79 97 01/17/21 11:05 76 96 01/17/21 11:00 74 98 01/17/21 10:59 98.4 F 75 20 126/79 01/17/21 10:55 75 98 01/17/21 10:50 80 98 01/17/21 10:45 83 127/70 97 01/17/21 10:41 87 92 01/17/21 10:40 76 98 04/24/21 10:35 76 100 01/17/21 10:30 71 96 21 10:25 78 98 21 10:20 79 99 0421 10:16 82 120/72 04/21 10:15 82 98 21 10:10 75 97 01/17/21 10:07 81 93 01/17/21 10:05 75 97 01/17/21 10:01 84 92 01/17/21 10:00 78 20 98 0421 09:59 74 115/70 21 09:55 78 93 01/17/21 09:50 70 98 01/17/21 09:45 83 109/64 97 01/17/21 09:41 80 94 01/17/21 09:40 86 98 01/17/21 09:35 79 98 01/17/21 09:31 70 111/66 01/17/21 09:30 69 97 01/17/21 09:25 80 96 01/17/21 09:22 89 94 01/17/21 09:20 78 97 01/17/21 09:15 77 123/79 98 01/17/21 09:10 75 97 01/17/21 09:05 79 96 01/17/21 09:03 98 H 18 93 01/17/21 09:00 86 116/67 95 21 08:55 102 H 97 01/17/21 08:50 81 97 01/17/21 08:45 81 119/75 98 01/17/21 08:40 85 96 01/17/21 08:35 87 98 01/17/21 08:30 79 114/76 97 0424/21 08:25 80 95 21 08:20 83 97 21 08:15 76 117/74 96 21 08:10 81 96 21 08:05 75 96 04/21 08:01 77 20 115/74 0424/21 08:00 76 96 2421 07:55 85 99 21 07:50 81 97 2421 07:45 77 97 0421 07:44 75 116/73 0424/21 07:40 78 97 04/24/21 07:38 81 93 01/17/21 07:35 89 96 01/17/21 07:30 89 97 01/17/21 07:29 131 H 116/77 01/17/21 07:25 88 97 01/17/21 07:20 81 98 01/17/21 07:19 98.8 F 80 20 122/70 01/17/21 07:15 80 96 01/17/21 07:14 85 92 01/17/21 07:10 83 98 01/17/21 07:06 88 92 01/17/21 07:05 79 99 01/17/21 07:00 87 107/71 98 01/17/21 06:55 82 97 01/17/21 06:50 88 97 01/17/21 06:46 74 18 114/70 01/17/21 06:45 71 97 01/17/21 06:40 101 H 98 01/17/21 06:39 96 H 92 Coding Level of Care Code None
--- NOTE | 2021-01-17 19:18 | Labor Progress Brief Note ---
Date of Service January 17, 2021 Subjective Comfortable with epidural Assessment & Plan (1) Normal labor: Begin second stage Admission and Anticipated Discharge Date Admission Date: January 17, 2021 Physical Exam Physical Exam: FHT Cat 1 [place] Q2-4 Cvx 10/100/+1 Results & Data ([facility]) Vital Signs (Past 12 Hours) Vital Signs Temp Pulse Resp BP Pulse Ox 01/17/21 19:15 80 68 L 01/17/21 19:14 111 H 139/78 01/17/21 19:12 98.4 F 18 01/17/21 19:10 125 H 99 01/17/21 19:05 118 H 100 01/17/21 19:03 92 H 93 01/17/21 19:00 86 133/83 100 01/17/21 18:55 85 99 01/17/21 18:50 82 100 01/17/21 18:46 76 127/68 01/17/21 18:45 83 93 01/17/21 18:40 83 100 01/17/21 18:39 76 92 01/17/21 18:35 107 H 99 01/17/21 18:31 91 H 93 01/17/21 18:30 85 99 01/17/21 18:25 76 99 01/17/21 18:20 81 98 01/17/21 18:18 88 91 01/17/21 18:15 94 H 121/60 100 01/17/21 18:10 78 100 01/17/21 18:05 79 98 01/17/21 18:02 84 91 01/17/21 18:00 78 100 01/17/21 17:59 95 H 118/76 01/17/21 17:55 91 H 97 01/17/21 17:50 89 98 01/17/21 17:45 77 100 01/17/21 17:44 99.0 F 85 20 122/77 01/17/21 17:42 95 H 93 01/17/21 17:40 79 99 01/17/21 17:35 103 H 98 01/17/21 17:30 86 133/81 97 01/17/21 17:29 94 H 93 01/17/21 17:25 85 99 01/17/21 17:20 76 100 01/17/21 17:15 77 123/74 98 01/17/21 17:10 95 H 98 01/17/21 17:05 74 98 01/17/21 17:00 87 100 01/17/21 16:59 94 H 115/79 01/17/21 16:55 81 98 01/17/21 16:50 84 99 01/17/21 16:46 77 20 121/74 01/17/21 16:45 74 99 01/17/21 16:40 71 100 01/17/21 16:35 90 100 01/17/21 16:30 89 123/83 99 01/17/21 16:25 106 H 99 01/17/21 16:24 83 93 01/17/21 16:20 78 99 01/17/21 16:15 74 132/77 98 01/17/21 16:10 74 98 01/17/21 16:05 70 99 01/17/21 16:00 67 99 01/17/21 15:59 66 117/72 01/17/21 15:55 71 99 01/17/21 15:50 71 100 01/17/21 15:45 98.8 F 74 20 136/84 99 01/17/21 15:40 82 99 01/17/21 15:35 76 99 01/17/21 15:32 76 132/70 01/17/21 15:30 90 100 01/17/21 15:25 70 99 01/17/21 15:20 75 99 01/17/21 15:15 72 125/71 100 01/17/21 15:10 71 99 01/17/21 15:05 69 99 01/17/21 15:00 64 118/68 99 01/17/21 14:55 74 99 01/17/21 14:50 81 99 01/17/21 14:45 75 20 119/82 99 01/17/21 14:42 90 89 L 01/17/21 14:40 80 95 01/17/21 14:36 81 92 01/17/21 14:35 64 96 01/17/21 14:30 98.8 F 71 20 139/84 97 01/17/21 14:25 77 97 01/17/21 14:23 78 93 01/17/21 14:20 65 97 01/17/21 14:18 103 H 94 01/17/21 14:15 81 91 01/17/21 14:12 91 H 91 01/17/21 14:10 87 95 01/17/21 14:05 85 98 01/17/21 14:03 96 H 91 01/17/21 14:00 77 83 L 01/17/21 13:57 74 93 01/17/21 13:55 84 92 01/17/21 13:52 74 94 01/17/21 13:50 79 96 01/17/21 13:46 88 92 01/17/21 13:45 70 96 01/17/21 13:44 68 128/80 01/17/21 13:40 69 96 01/17/21 13:38 73 94 01/17/21 13:35 73 95 01/17/21 13:32 74 94 01/17/21 13:30 75 131/84 96 01/17/21 13:27 74 91 01/17/21 13:25 70 96 01/17/21 13:20 71 94 01/17/21 13:15 71 126/80 95 01/17/21 13:11 76 93 01/17/21 13:10 74 97 01/17/21 13:05 68 98 01/17/21 13:01 73 107/61 01/17/21 13:00 73 95 01/17/21 12:57 68 93 01/17/21 12:55 69 97 01/17/21 12:50 68 96 01/17/21 12:46 68 112/59 L 01/17/21 12:45 68 98 01/17/21 12:40 71 97 01/17/21 12:35 71 98 01/17/21 12:30 73 118/63 97 01/17/21 12:26 84 94 01/17/21 12:25 89 93 01/17/21 12:21 77 94 01/17/21 12:20 78 94 01/17/21 12:16 77 94 01/17/21 12:15 74 130/88 94 01/17/21 12:10 71 96 01/17/21 12:05 75 96 01/17/21 12:02 93 H 93 01/17/21 12:00 76 121/71 97 01/17/21 11:55 74 97 01/17/21 11:50 76 97 01/17/21 11:45 74 116/72 98 01/17/21 11:40 80 97 01/17/21 11:35 74 98 04/24/21 11:30 78 103/61 97 01/17/21 11:25 74 96 01/17/21 11:23 88 92 01/17/21 11:20 81 97 01/17/21 11:15 78 96 01/17/21 11:14 93 H 128/83 94 01/17/21 11:10 79 97 01/17/21 11:05 76 96 01/17/21 11:00 74 98 01/17/21 10:59 98.4 F 75 20 126/79 01/17/21 10:55 75 98 01/17/21 10:50 80 98 01/17/21 10:45 83 127/70 97 01/17/21 10:41 87 92 01/17/21 10:40 76 98 01/17/21 10:35 76 100 01/17/21 10:30 71 96 01/17/21 10:25 78 98 01/17/21 10:20 79 99 01/17/21 10:16 82 120/72 01/17/21 10:15 82 98 01/17/21 10:10 75 97 01/17/21 10:07 81 93 01/17/21 10:05 75 97 01/17/21 10:01 84 92 01/17/21 10:00 78 20 98 01/17/21 09:59 74 115/70 01/17/21 09:55 78 93 01/17/21 09:50 70 98 01/17/21 09:45 83 109/64 97 01/17/21 09:41 80 94 01/17/21 09:40 86 98 01/17/21 09:35 79 98 01/17/21 09:31 70 111/66 01/17/21 09:30 69 97 01/17/21 09:25 80 96 01/17/21 09:22 89 94 01/17/21 09:20 78 97 01/17/21 09:15 77 123/79 98 01/17/21 09:10 75 97 01/17/21 09:05 79 96 01/17/21 09:03 98 H 18 93 01/17/21 09:00 86 116/67 95 01/17/21 08:55 102 H 97 01/17/21 08:50 81 97 01/17/21 08:45 81 119/75 98 01/17/21 08:40 85 96 01/17/21 08:35 87 98 01/17/21 08:30 79 114/76 97 01/17/21 08:25 80 95 01/17/21 08:20 83 97 01/17/21 08:15 76 117/74 96 01/17/21 08:10 81 96 01/17/21 08:05 75 96 01/17/21 08:01 77 20 115/74 01/17/21 08:00 76 96 01/17/21 07:55 85 99 01/17/21 07:50 81 97 01/17/21 07:45 77 97 01/17/21 07:44 75 116/73 01/17/21 07:40 78 97 01/17/21 07:38 81 93 01/17/21 07:35 89 96 01/17/21 07:30 89 97 01/17/21 07:29 131 H 116/77 01/17/21 07:25 88 97 01/17/21 07:20 81 98 01/17/21 07:19 98.8 F 80 20 122/70 Coding Level of Care Code None Diagnoses Normal labor O80; Z37.9
--- NOTE | 2021-01-17 19:58 | Delivery Summary ---
Vaginal Delivery Summary Date of Service January 17, 2021 Vaginal Delivery Summary DIAGNOSES: 1. Saul intrauterine at 39w1d gestation. 2. Spontaneous onset of labor. 3. Group B Streptococcus Neg. PROCEDURE: Spontaneous vaginal delivery and repair of second degree laceration. SURGEON: Doreen Magaña MD. [employer]ING [employer]: None. ESTIMATED BLOOD LOSS: 300 mL. COMPLICATIONS: None. PLACENTA: Spontaneous and intact with a 3-vessel cord. DISPOSITION: Stable to labor and delivery. DESCRIPTION: The patient pushed well and brought the head to in ROP position. The infant's head was allowed to deliver with contraction force and no further active pushing, with the perineum protected during this time. The shoulders delivered easily with a maternal pushing effort. There was no nuchal cord. The left shoulder was anterior. The shoulders and body delivered without any difficulty, and the was placed on the maternal abdomen. Meconium was suctioned from the mouth and nose. It was vigorous and moving all extremities, and making respiratory efforts. The cervix, vagina and perineum were examined and were found to have a small second degree laceration, which was repaired using vicryl in the usual manner. The cord was doubly clamped by the MD after the 10 minute interval which was requested by the FOB after he was prompted by the patient's land leasing examiner. It was then cut by the FOB. The placenta delivered spontaneously immediately thereafter and was noted to be intact and with a 3VC, but circummarginate insertion and meconium staining, and was sent for exam. The fundus was firm and lochia minimal immediately after delivery. [facility] Vaginal Delivery Charge Vaginal Delivery Codes: 19211 global code for the antepartum, delivery, and post-
[2021-01-17] MEDS ORDERED: HYDROCORTISONE ACETATE 25 MG SUPP PR PRN (21:00)
[2021-01-17] MEDS ORDERED: ACETAMINOPHEN 325 MG TAB PO PRN (21:00)
[2021-01-17] MEDS ORDERED: oxyCODONE/ACETAMINOPHEN 5mg/325mg TAB PO PRN (21:00)
[2021-01-17] MEDS ORDERED: DIPHTHERIA/TETANUS/PERTUSSIS 0.5 ML SYR/VIAL IM ONE (21:00)
[2021-01-17] MEDS ORDERED: BENZOCAINE 20% AER SPR 82.5 GM CAN EXT PRN (21:00)
[2021-01-17] MEDS ORDERED: SUPERCREAM 0.870% 15 GM JAR EXT PRN (21:00)
--- NOTE | 2021-01-17 21:45 | Anesthesia Procedure Note ---
Date of Service January 17, 2021 Anesthesia Post Epidural Note Vital Signs Vital Signs: Temp Pulse Resp BP Pulse Ox 36.8 C 92 H 18 128/84 100 01/17/21 20:35 01/17/21 21:38 01/17/21 21:35 01/17/21 21:38 01/17/21 20:20 Pain Intensity Bilateral Abdomen: Pain Intensity: 0 Notes Mental Status: alert / awake / arousable Nausea / Vomiting: adequately controlled Pain: adequately controlled Airway Patency, RR, SpO2: stable & adequate BP & HR: stable & adequate Hydration State: stable & adequate Neuraxial Anesthesia: was administered and sensory block is resolving Anesthetic Complications: no major complications apparent and Pt Satisfied with anesthetic care Epidural: Removed without complications and With tip intact
[2021-01-17] MEDS: DOCUSATE SODIUM 100 MG CAP PO SCH (22:00)
--- NOTE | 2021-01-18 07:25 | Obstetrical Progress Note ---
Date of Service January 18, 2021 Assessment & Plan (1) state: PPD#1 doing well, routine care. Subjective Ambulation: ambulating normally Voiding: no voiding problems Passing Gas:: Yes Diet Tolerance:: regular diet Lochia:: Small Feeding Type:: breast feeding Physical Exam Constitutional WD/WN, vitals as above Eyes PERRL, conjunctivae normal, anicteric sclerae Neck normal visual inspection Respiratory normal respiratory effort and able to speak in complete sentences; no respiratory distress and no labored breathing Cardiovascular Rate/Rhythm: regular rate and regular rhythm Extremities: no edema Chest (Breasts) Chest: normal inspection of chest Gastrointestinal (Abdomen) Inspection/Auscultation: abdomen normal to inspection Soft, postgravid Psychiatric A+Ox3, euthymic affect Genitourinary OB Exam Abdomen: + fundal height Fundus: + firm and + relation to umbilicus (fundus just below umbilicus); not tender Results & Data ([facility]) Vital Signs (Past 12 Hours) Vital Signs Temp Pulse Pulse Resp BP BP Pulse Ox 01/18/21 04:00 98.1 F 75 16 118/82 98 01/17/21 23:25 98.4 F 86 16 129/79 97 01/17/21 22:38 83 122/68 01/17/21 22:35 99.0 F 18 01/17/21 22:23 86 131/77 01/17/21 22:07 80 127/89 01/17/21 22:05 18 01/17/21 21:52 86 130/80 01/17/21 21:38 92 H 128/84 01/17/21 21:35 18 01/17/21 21:23 85 138/87 01/17/21 21:20 18 01/17/21 21:07 82 122/77 01/17/21 21:05 92 H 18 128/84 01/17/21 20:53 85 131/83 01/17/21 20:50 85 18 138/87 01/17/21 20:39 85 127/64 01/17/21 20:35 98.2 F 18 01/17/21 20:30 87 119/70 01/17/21 20:20 117 H 100 01/17/21 20:15 86 18 100 01/17/21 20:14 122 H 141/84 H 01/17/21 20:10 161 H 96 04/24/21 20:05 123 H 98 01/17/21 20:00 101 H 18 141/82 H 97 01/17/21 19:55 97 H 98 01/17/21 19:53 131 H 88 L 01/17/21 19:50 93 H 98 01/17/21 19:47 112 H 135/81 01/17/21 19:45 94 H 18 98 01/17/21 19:40 107 H 85 L 01/17/21 19:35 84 99 01/17/21 19:30 86 18 99 01/17/21 19:29 111 H 82 L 01/17/21 19:25 92 H 98
[2021-01-18] MEDS: IBUPROFEN 600 MG TAB PO PRN ×2 (07:40→19:08)
[2021-01-18] MEDS: PRENATAL VITAMIN 1 TAB PO SCH (08:28)
[2021-01-18] MEDS: DOCUSATE SODIUM 100 MG CAP PO SCH ×2 (08:28→20:40)
[2021-01-19] MEDS: IBUPROFEN 600 MG TAB PO PRN ×2 (02:05→09:26)
--- NOTE | 2021-01-19 07:22 | Obstetrical Progress Note ---
Date of Service January 19, 2021 Assessment & Plan (1) state: D/C instructions reviewed. Subjective Ambulation: ambulating normally Voiding: no voiding problems Passing Gas:: Yes Diet Tolerance:: regular diet Lochia:: Small Feeding Type:: breast feeding Physical Exam Constitutional WD/WN, vitals as above Eyes PERRL, conjunctivae normal, anicteric sclerae Neck normal visual inspection Respiratory normal respiratory effort and able to speak in complete sentences; no respiratory distress and no labored breathing Cardiovascular Rate/Rhythm: regular rate and regular rhythm Extremities: no edema Chest (Breasts) Chest: normal inspection of chest Gastrointestinal (Abdomen) Inspection/Auscultation: abdomen normal to inspection Soft, postgravid Psychiatric A+Ox3, euthymic affect Genitourinary OB Exam Abdomen: + fundal height Fundus: + firm and + relation to umbilicus (fundus just below umbilicus); not tender Results & Data ([facility]) Vital Signs (Past 12 Hours) Vital Signs Temp Pulse Resp BP Pulse Ox 01/19/21 00:00 97.9 F 73 18 113/72 01/18/21 19:30 98.1 F 83 18 121/81 98
[2021-01-19] MEDS: PRENATAL VITAMIN 1 TAB PO SCH (08:26)
[2021-01-19] MEDS: DOCUSATE SODIUM 100 MG CAP PO SCH (08:27)
== END 2021-01-19 12:25 | disposition home or self-care (01) | DRG 807 ==
LOC: OPB 02:08 → 4S1 02:10 → 4S2 23:00

== ENCOUNTER 2022-11-29 13:24 | Inpatient (IN) ==
[2022-11-29] MEDS ORDERED: LIDOCAINE 1% LOCAL 20 ML VIAL INFIL PRN (13:36)
[2022-11-29] MEDS ORDERED: SODIUM CHLORIDE 0.9% INJ 10 ML VIAL ONE (14:02)
[2022-11-29] MEDS ORDERED: BUPIVACAINE 0.25% 30 ML VIAL ONE (14:02)
[2022-11-29] MEDS ORDERED: fentaNYL citrate 100 MCG/2 ML VIAL ONE (14:02)
[2022-11-29] MEDS ORDERED: LIDOCAINE 2%/EPINEPHRINE 1:200,000 20 ML SDV ONE (14:02)
[2022-11-29] MEDS ORDERED: ePHEDrine sulfate 50 MG/ML AMP ONE (14:02)
[2022-11-29] MEDS ORDERED: fentaNYL 2MCG/ML ROPIVACAINE 1.25MG/ML 100 ML BAG EPI ONE (14:03)
[2022-11-29] MEDS: LACTATED RINGER'S 1,000 ML IV PRN ×2 (14:09→14:58)
[2022-11-29] MEDS ORDERED: PENICILLIN G POTASSIUM 6 MU in DEXTROSE 5% 250 ML IV ONE (14:15)
[2022-11-29 14:20] LABS: Hematocrit (blood only) 38.6 % (37.0-47.0); Mean Corpuscular Hemoglobin 31.3 pg (25.0-34.0); Mean Corpuscular Hgb Conc 33.7 g/dL (32.0-36.0); Mean Corpuscular Volume 92.8 fL (80.0-100.0); Mean Platelet Volume 9.5 fL (9.4-12.4); Platelet Count 282 K/uL (130-400); RDW Coefficient of Variation 13.2 % (11.5-14.5); Red Blood Count 4.16 M/uL (4.20-5.40); White Blood Count 10.71 K/ul (4.8-10.8)
[2022-11-29] MEDS ORDERED: ONDANSETRON INJ 2 MG/ML 2 ML VIAL IV PRN (14:28)
[2022-11-29] MEDS ORDERED: NALBUPHINE HCL INJ 10 MG/ML AMP IV PRN (14:28)
[2022-11-29] MEDS ORDERED: diphenhydrAMINE 50 MG/ML VIAL IV PRN (14:28)
[2022-11-29] MEDS ORDERED: ePHEDrine sulfate 50 MG/ML AMP IV PRN (14:28)
[2022-11-29] MEDS ORDERED: fentaNYL 2MCG/ML ROPIVACAINE 1.25MG/ML 100 ML BAG EPI PRN (14:28)
--- NOTE | 2022-11-29 14:29 | Anesthesiology Consultation ---
Date of Service November 29, 2022 Assessment & Plan (1) Encounter for pre-operative examination: Chart Review Chart Review: Patient NOT seen in Pre Admission Testing and Acceptable Risk for Labor Epidural Consults Requested none History Height/Weight Height: 5 ft 6 in Weight: 70.76 kg Allergies Allergy/AdvReac Type Severity Reaction Status Date / Time clindamycin Allergy Intermediate Hives Verified 11/18/22 07:53 Latex, Natural Rubber Allergy Rash Verified 11/18/22 07:53 Sulfa (Sulfonamide Allergy hives Verified 11/18/22 07:53 Antibiotics) Medications Home Medications Medication Instructions Recorded Confirmed Last Taken prenat.vits,akash,onx-lzmd-noegz 1 tab PO DAILY 06/12/20 11/29/22 11/29/22 Active Medications Generic Name Dose Route Start Last Admin Trade Name Freq PRN Reason Stop Dose Admin Lactated Ringer's 1,000 mls @ 125 mls/hr 11/29/22 13:36 11/29/22 14:09 Lr IV 12/01/22 13:35 999 mls/hr .Q8H PRN Administration L&D Protocol Protocol Penicillin G Potassium 6 mu/ 262 mls @ 262 mls/hr 11/29/22 14:15 11/29/22 14:24 Dextrose IV 11/29/22 15:14 262 mls/hr NOW ONE Administration Past Medical History Medical History (Updated 11/29/22 @ 14:38 by Martha Gentile MD, FACOG) Encounter for anatomic survey No significant past medical history Normal labor Supervision of normal intrauterine in primigravida Varicella vaccination Exercise / Class Metabolic Activity II 4-5 Yardwork/Stairs/Walk up hill Past Family History Family History Grandmother (Maternal) Heart disease Aunt Breast cancer Denies family history of Ovarian cancer Colorectal cancer Past Surgical History Surgical History S/P wisdom tooth extraction Past Anesthesia History No Hx of Anesthesia Complications and No Family Hx of Anesthesia Complications History of PONV No Hx of PONV and No Hx of Motion Sickness Social History Smoking Status: Never smoker Hx Alcohol Use: No Hx Substance Use: No Physical Exam Vital Signs Last Vital Signs Temp 36.6 C 11/29/22 13:35 Pulse 81 11/29/22 14:41 Resp 18 11/29/22 13:35 BP 133/82 11/29/22 13:35 Pulse Ox 96 11/29/22 14:41 Testing Laboratory Results 11/29/22 13:58
--- NOTE | 2022-11-29 14:39 | History & Physical Report ---
Date of Service November 29, 2022 Assessment & Plan (1) Normal labor: Plan: multip in active labor with intact membranes and unknown GBS status GBS culture obtained and PCN prophylaxis started per protocol epidural analgesia if patient desires anticipate vaginal Admission and Anticipated Discharge Date Admission Date: November 29, 2022 History of Present Illness Primary Care Provider: NO PCP Patient is a 26 yo female EDC 12/10/22 who presents at 38 3/7 weeks with regular contractions starting at 0400. (+) bloody show. (-) SPROM has been uncomplicated although she has not been seen in our office since 34 week visit. GBS status is unknown. GBS was negative last and she assumed it would be negative this . Patient presents with her Romina Castillo. She is planning an unmedicated . Allergies Allergy/AdvReac Type Severity Reaction Status Date / Time clindamycin Allergy Intermediate Hives Verified 11/18/22 07:53 Latex, Natural Rubber Allergy Rash Verified 11/18/22 07:53 Sulfa (Sulfonamide Allergy hives Verified 11/18/22 07:53 Antibiotics) Home Medications Medication Instructions Recorded Confirmed Type prenat.vits,akash,moh-jwkm-blpsa 1 tab PO DAILY 06/12/20 11/29/22 History Patient History Medical History (Updated 11/29/22 @ 14:38 by Martha Gentile MD, FACOG) Encounter for anatomic survey No significant past medical history Normal labor Supervision of normal intrauterine in primigravida Varicella vaccination Surgical History S/P wisdom tooth extraction Family History Grandmother (Maternal) Heart disease Aunt Breast cancer Denies family history of Ovarian cancer Colorectal cancer Social History (Updated 05/03/22 @ 14:11 by Gwendolyn Guzman) Smoking Status: Never smoker Hx Alcohol Use: No Hx Substance Use: No Preferred Language: Korean Communication Ability: Effective Poke In Required: No Beliefs That Will Affect Care: None marital status: marital status details: Braeden (25) [phone] Current Living Situation: Spouse Current Living Situation Comment: lives with spouse, son, no pets current occupational status: unemployed 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 Other Information That Helps Us Care for You: No Feels Safe at Home: Yes Safety Concerns: Feels Safe At This Time Assistive Devices: None Review of Systems All systems reviewed & are unremarkable except as noted in HPI & below Physical Exam Constitutional: WD/WN, vitals as above Psychiatric: A+Ox3, euthymic affect Genitourinary: OB Exam Abdomen: + vertex, + estimated weight (7-8 pounds) and + regular contractions (Q 4 minutes- moderate) Manual OB Exam: + cervical dilation 7 cm, + cervical effacement 100% and + station -2 OB Exam Monitor Tracing: + external FHT monitor used, + external uterine monitor used, + category I and + normal FHT variability Results & Data ([facility]) Vital Signs (Past 12 Hours) Vital Signs Temp Pulse Resp BP Pulse Ox 11/29/22 14:31 97 11/29/22 14:31 93 H 11/29/22 14:26 100 11/29/22 14:26 82 11/29/22 14:21 99 11/29/22 14:21 84 11/29/22 14:16 100 11/29/22 14:16 81 11/29/22 14:11 98 11/29/22 14:11 79 11/29/22 14:06 99 11/29/22 14:06 79 11/29/22 14:01 100 11/29/22 14:01 98 H 11/29/22 13:56 100 11/29/22 13:56 84 11/29/22 13:47 99 11/29/22 13:47 79 11/29/22 13:35 97.9 F 83 18 133/82 Code Status & VTE Plan VTE Prophylaxis Plan VTE Prophylaxis will be ordered: No Coding Level of Care Code None Diagnoses Normal labor O80; Z37.9
[2022-11-29] MEDS ORDERED: PENICILLIN G POTASSIUM 3 MU in DEXTROSE 5% 100 ML IV PRN (16:56)
[2022-11-29] MEDS ORDERED: NIFEdipine 10 MG CAP PO STA (17:43)
[2022-11-29] MEDS: OXYTOCIN 30 UNITS/500 ML BAG IV PRN ×2 (20:18→21:42)
[2022-11-29] MEDS ORDERED: HYDROCORTISONE ACETATE 25 MG SUPP PR PRN (21:27)
[2022-11-29] MEDS ORDERED: DIPHTHERIA/TETANUS/PERTUSSIS 0.5mL SYR/VIAL (Age 7+yrs) IM ONE (21:27)
[2022-11-29] MEDS ORDERED: oxyCODONE/ACETAMINOPHEN 5mg/325mg TAB PO PRN (21:27)
[2022-11-29] MEDS ORDERED: OXYTOCIN 30 UNITS/500 ML BAG IV PRN (21:27)
[2022-11-29] MEDS ORDERED: BENZOCAINE 20% AER SPR 82.5 GM CAN EXT PRN (21:27)
[2022-11-29] MEDS ORDERED: bisacodyL 10 MG SUPP PR PRN (21:27)
--- NOTE | 2022-11-29 21:45 | Delivery Summary ---
Vaginal Delivery Summary Date of Service November 29, 2022 Vaginal Delivery Summary [facility] Patient is a 26-year-old 2 para 1-0-0-1 female with an EDC of 12/10/2022 who presented at 38-3/7 weeks in active labor. She requested epidural analgesia which was effective. She progressed to full dilation after membranes ruptured spontaneously for clear fluid. She had the urge to push and delivered a viable female over intact perineum after a fore bag was ruptured. After the head was delivered the rest of the infant delivered easily after reducing a loose nuchal cord. After 1 minute the cord was clamped and cut and cord blood was obtained. Placenta was then expressed intact with a three-vessel cord. bleeding was controlled with dilute Pitocin and fundal massage. Perineum was intact. Estimated blood loss was 150 cc. Mother and were doing well after delivery. [facility] [place] Vaginal Delivery Charge Delivery Type Details: [facility]
[2022-11-30] MEDS: IBUPROFEN 600 MG TAB PO PRN ×2 (01:29→06:31)
--- NOTE | 2022-11-30 06:19 | Obstetrical Progress Note ---
Date of Service <Dorene Puckett MD - Last Filed: 11/30/22 07:20> November 30, 2022 Assessment & Plan <Dorene Puckett MD - Last Filed: 11/30/22 07:20> (1) state: 26 y/o female at term presented in labor. Rh pos, RI. GBS status unknown as she was not seen in office after 34 weeks. Treated with abx during labor. Proceeding with . Satisfactory post progress. Tolerating PO. Encourage ambulation. <Martha Gentile MD, FACOG - Last Filed: 11/30/22 07:21> (1) state: Subjective <Dorene Puckett MD - Last Filed: 11/30/22 07:20> Ambulation: ambulating normally Voiding: no voiding problems Passing Gas:: Yes Diet Tolerance:: regular diet Lochia:: Moderate Feeding Type:: breast feeding Physical Exam <Dorene Puckett MD - Last Filed: 11/30/22 07:20> Gen: well appearing female in NAD HEENT: AT NC Resp: no increased work of breathing CV: clinically well perfused : uterus firm non-tender at the level of the umbilicus Psych: appropriate mood and affect Neuro: alert and oriented Results & Data ([facility]) <Dorene Puckett MD - Last Filed: 11/30/22 07:20> Vital Signs (Past 12 Hours) Vital Signs Temp Pulse Pulse Resp BP BP Pulse Ox 11/30/22 03:08 36.9 C 75 20 95/54 L 96 11/30/22 00:12 37.0 C 77 18 105/67 96 11/29/22 20:40 18 11/29/22 20:25 18 11/29/22 22:31 91 H 11/29/22 22:31 115/64 11/29/22 22:16 75 11/29/22 22:16 113/64 11/29/22 22:02 83 11/29/22 22:02 107/62 11/29/22 21:46 86 11/29/22 21:46 104/76 11/29/22 21:31 76 11/29/22 21:31 128/80 11/29/22 21:16 70 11/29/22 21:16 115/69 11/29/22 21:01 74 11/29/22 21:01 121/76 11/29/22 20:46 82 11/29/22 20:46 124/75 11/29/22 20:31 77 11/29/22 20:31 115/65 11/29/22 20:16 81 L 11/29/22 20:16 92 H 11/29/22 20:16 137/78 11/29/22 20:14 92 11/29/22 20:14 96 H 11/29/22 20:11 100 11/29/22 20:11 100 H 11/29/22 20:06 98 11/29/22 20:06 83 11/29/22 20:04 91 11/29/22 20:04 98 H 11/29/22 20:02 82 11/29/22 20:02 93/67 L 11/29/22 20:01 100 11/29/22 20:01 89 11/29/22 19:56 98 11/29/22 19:56 88 11/29/22 19:52 91 11/29/22 19:52 88 11/29/22 19:51 97 11/29/22 19:51 86 11/29/22 19:46 97 11/29/22 19:46 97 H 11/29/22 19:46 93 11/29/22 19:46 91 H 11/29/22 19:46 102/66 11/29/22 19:41 97 11/29/22 19:41 91 H 11/29/22 19:36 96 11/29/22 19:36 79 11/29/22 19:33 80 11/29/22 19:33 18 100/56 L 11/29/22 19:31 97 11/29/22 19:31 77 11/29/22 19:26 98 11/29/22 19:26 83 11/29/22 19:21 99 11/29/22 19:21 89 11/29/22 19:16 98 11/29/22 19:16 81 11/29/22 19:16 78 11/29/22 19:16 113/61 11/29/22 19:11 97 11/29/22 19:11 82 11/29/22 19:06 97 11/29/22 19:06 80 11/29/22 19:03 18 11/29/22 19:03 18 11/29/22 19:03 76 11/29/22 19:03 133/64 11/29/22 19:01 99 11/29/22 19:01 78 11/29/22 18:56 98 11/29/22 18:56 81 11/29/22 18:51 98 11/29/22 18:51 80 11/29/22 18:48 75 11/29/22 18:48 110/74 11/29/22 18:46 97 11/29/22 18:46 73 11/29/22 18:40 20 11/29/22 18:40 36.7 C 20 11/29/22 18:41 97 11/29/22 18:41 81 11/29/22 18:30 16 11/29/22 18:30 16 11/29/22 18:36 98 11/29/22 18:36 84 11/29/22 18:31 98 11/29/22 18:31 82 11/29/22 18:32 77 11/29/22 18:32 110/72 11/29/22 18:26 96 11/29/22 18:26 82 11/29/22 18:21 98 11/29/22 18:21 77 O2 Del Method 11/30/22 03:08 Room Air 11/30/22 00:12 Room Air 11/29/22 20:40 11/29/22 20:25 11/29/22 22:31 11/29/22 22:31 11/29/22 22:16 11/29/22 22:16 11/29/22 22:02 11/29/22 22:02 11/29/22 21:46 11/29/22 21:46 11/29/22 21:31 11/29/22 21:31 11/29/22 21:16 11/29/22 21:16 11/29/22 21:01 11/29/22 21:01 11/29/22 20:46 11/29/22 20:46 11/29/22 20:31 11/29/22 20:31 11/29/22 20:16 11/29/22 20:16 11/29/22 20:16 11/29/22 20:14 11/29/22 20:14 11/29/22 20:11 11/29/22 20:11 11/29/22 20:06 11/29/22 20:06 11/29/22 20:04 11/29/22 20:04 11/29/22 20:02 11/29/22 20:02 11/29/22 20:01 11/29/22 20:01 11/29/22 19:56 11/29/22 19:56 11/29/22 19:52 11/29/22 19:52 11/29/22 19:51 11/29/22 19:51 11/29/22 19:46 11/29/22 19:46 11/29/22 19:46 11/29/22 19:46 11/29/22 19:46 11/29/22 19:41 11/29/22 19:41 11/29/22 19:36 11/29/22 19:36 11/29/22 19:33 11/29/22 19:33 11/29/22 19:31 11/29/22 19:31 11/29/22 19:26 11/29/22 19:26 11/29/22 19:21 11/29/22 19:21 11/29/22 19:16 11/29/22 19:16 11/29/22 19:16 11/29/22 19:16 11/29/22 19:11 11/29/22 19:11 11/29/22 19:06 11/29/22 19:06 11/29/22 19:03 11/29/22 19:03 11/29/22 19:03 11/29/22 19:03 11/29/22 19:01 11/29/22 19:01 11/29/22 18:56 11/29/22 18:56 11/29/22 18:51 11/29/22 18:51 11/29/22 18:48 11/29/22 18:48 11/29/22 18:46 11/29/22 18:46 11/29/22 18:40 11/29/22 18:40 11/29/22 18:41 11/29/22 18:41 11/29/22 18:30 11/29/22 18:30 11/29/22 18:36 11/29/22 18:36 11/29/22 18:31 11/29/22 18:31 11/29/22 18:32 11/29/22 18:32 11/29/22 18:26 11/29/22 18:26 11/29/22 18:21 11/29/22 18:21 Laboratory Results 11/30/22 06:03 <Martha Gentile MD, FACOG - Last Filed: 11/30/22 07:21> Co-Signing Physician Notes Resident Physician Supervision Note: I interviewed and examined the patient. Discussed with Dr. Puckett and agree with findings and plan as documented in the note. Any exceptions or clarifications are listed here: [None] Documented By: Martha Gentile MD, FACOG Resident Activity Tracking <Dorene Puckett MD - Last Filed: 11/30/22 07:20> Resident Involvement: Resident Care Provided Care Provided: OB Delivery
[2022-11-30 06:50] LABS: Hematocrit (blood only) 31.3 % (37.0-47.0); Hemoglobin 10.5 g/dl (12.0-16.0); Mean Corpuscular Hemoglobin 30.9 pg (25.0-34.0); Mean Corpuscular Hgb Conc 33.5 g/dL (32.0-36.0); Mean Corpuscular Volume 92.1 fL (80.0-100.0); Mean Platelet Volume 9.8 fL (9.4-12.4); Platelet Count 250 K/uL (130-400); RDW Coefficient of Variation 13.2 % (11.5-14.5); RDW Standard Deviation 44.5 fL (36.4-46.3); White Blood Count 14.89 K/ul (4.8-10.8)
[2022-11-30] MEDS: PRENATAL VITAMIN 1 TAB PO SCH (09:09)
[2022-11-30] MEDS: ACETAMINOPHEN 325 MG TAB PO PRN ×3 (09:09→21:32)
[2022-11-30] MEDS: DOCUSATE SODIUM 100 MG CAP PO SCH ×2 (09:09→22:15)
[2022-11-30] MEDS ORDERED: bisacodyL 5 MG TABEC PO SCH (20:00)
[2022-12-01] MEDS: IBUPROFEN 600 MG TAB PO PRN (00:02)
--- NOTE | 2022-12-01 05:20 | Obstetrical Progress Note ---
Date of Service <Dorene Puckett MD - Last Filed: 12/01/22 06:27> December 01, 2022 Assessment & Plan <Dorene Puckett MD - Last Filed: 12/01/22 06:27> (1) state: 26 y/o female at term presented in labor now PPD2. Rh pos, RI. GBS status unknown as she was not seen in office after 34 weeks. Treated with abx during labor. Satisfactory post progress. Tolerating PO. Encourage ambulation. <Doreen Magaña MD - Last Filed: 12/01/22 07:22> (1) state: Subjective <Dorene Puckett MD - Last Filed: 12/01/22 06:27> Ambulation: ambulating normally Voiding: no voiding problems Passing Gas:: Yes Diet Tolerance:: regular diet Lochia:: Small Feeding Type:: breast feeding Physical Exam <Dorene Puckett MD - Last Filed: 12/01/22 06:27> Gen: well appearing female in NAD HEENT: AT NC Resp: no increased work of breathing CV: clinically well perfused : uterus firm non-tender at the level of the umbilicus Psych: appropriate mood and affect Neuro: alert and oriented Results & Data ([facility]) <Dorene Puckett MD - Last Filed: 12/01/22 06:27> Vital Signs (Past 12 Hours) Vital Signs Temp Pulse Resp BP Pulse Ox O2 Del Method 12/01/22 00:10 36.7 C 65 18 115/76 97 Room Air 12/01/22 00:10 Room Air 11/30/22 20:00 37 C 68 18 119/81 97 Room Air Laboratory Results 11/30/22 06:03 <Doreen Magaña MD - Last Filed: 12/01/22 07:22> Co-Signing Physician Notes Resident Physician Supervision Note: I interviewed and examined the patient. Discussed with Dr. Puckett and agree with findings and plan as documented in the note. Any exceptions or clarifications are listed here: [ ] Documented By: Doreen Magaña MD, FACOG Resident Activity Tracking <Dorene Puckett MD - Last Filed: 12/01/22 06:27> Resident Involvement: Resident Care Provided Care Provided: OB Delivery
[2022-12-01 06:34] LABS: Hematocrit (blood only) 32.5 % (37.0-47.0); Hemoglobin 10.9 g/dl (12.0-16.0)
[2022-12-01] MEDS: PRENATAL VITAMIN 1 TAB PO SCH (08:27)
[2022-12-01] MEDS: DOCUSATE SODIUM 100 MG CAP PO SCH (08:27)
[2022-12-01 09:51] VITALS: BP 110/70; PULSE 60; TEMP 99.1; O2SAT 98
== END 2022-12-01 11:30 | disposition home or self-care (01) | DRG 807 ==
LOC: OPB 13:24 → 4S1 13:26 → 4E2 11-30 00:58

== ENCOUNTER 2025-01-31 14:35 | Inpatient (IN) ==
[2025-01-31] MEDS ORDERED: OXYTOCIN 30 UNITS/NSS 30 UNITS/500 ML BAG IV PRN ×2 (16:35→18:24)
[2025-01-31] MEDS ORDERED: LIDOCAINE 1% LOCAL 20 ML VIAL INFIL PRN (16:35)
[2025-01-31] MEDS ORDERED: LACTATED RINGER'S 1,000 ML IV PRN (16:35)
[2025-01-31 17:29] LABS: Hematocrit (blood only) 36.4 % (37.0-47.0); Hemoglobin 12.3 g/dl (12.0-16.0); Mean Corpuscular Hemoglobin 30.6 pg (25.0-34.0); Mean Corpuscular Hgb Conc 33.8 g/dL (32.0-36.0); Mean Corpuscular Volume 90.5 fL (80.0-100.0); Mean Platelet Volume 9.7 fL (9.4-12.4); Platelet Count 263 K/uL (130-400); RDW Coefficient of Variation 12.6 % (11.5-14.5); RDW Standard Deviation 41.7 fL (36.4-46.3); Red Blood Count 4.02 M/uL (4.20-5.40); White Blood Count 8.71 K/ul (4.8-10.8)
[2025-01-31] MEDS: OXYTOCIN 10 UNITS/ML VIAL ONE (18:14)
[2025-01-31] MEDS ORDERED: HYDROCORTISONE ACETATE 25 MG SUPP PR PRN (18:24)
[2025-01-31] MEDS ORDERED: bisacodyL 10 MG SUPP PR PRN (18:24)
[2025-01-31] MEDS ORDERED: ACETAMINOPHEN 325 MG TAB PO PRN (18:24)
--- NOTE | 2025-01-31 18:24 | Delivery Summary ---
Vaginal Delivery Summary Date of Service January 31, 2025 Vaginal Delivery Summary and 1st Degree LAC Spontaneous vaginal livery patient arrived in active labor this was her third baby she had declined epidural at the last minute she did ask for it however at that stage she was anterior lip and there was some time she had artificial rupture membranes at that time with clear fluid she then pushed over several contractions delivering baby in occiput anterior position once the head was delivered gentle traction on the baby easy delivery live vigorous female cord clamped and cut cord blood obtained placenta removed with traction IM Pitocin given as her IV had pulled out. There was a small tear at the posterior fourchette but not bleeding first-degree this was on repaired I did offer to repair it for the patient but it would involve local and she declined sponge and instrument counts correct QBL 300 mL [facility] Vaginal Delivery Charge Delivery Type Details: and 1st Degree LAC
[2025-01-31] MEDS: IBUPROFEN 600 MG TAB PO PRN (20:53)
[2025-01-31] MEDS: BENZOCAINE 20% SPRY 85 APPLN/85 GM CAN EXT PRN (21:14)
[2025-01-31] MEDS: DOCUSATE SODIUM 100 MG CAP PO SCH (21:14)
[2025-01-31 21:29] VITALS: RESP 16
[2025-02-01] MEDS: DIPHTHER/TETAN/PERTUS Vaccine (Tdap, Adol/Adult) 0.5mL IM ONE (01:49)
[2025-02-01 03:53] VITALS: O2SAT 96
--- NOTE | 2025-02-01 06:59 | Obstetrical Progress Note ---
Date of Service February 01, 2025 Assessment & Plan (1) Encounter for assessment: Plan: Patient is PPD 1 s/p and doing well - Eating well, voiding well, ambulating well - vitals reviewed and within normal limits - pain well controlled with analgesics - OOB, ambulation, diet progression as tolerated - Blood type: A+, GBS neg, rubella immune - Plan to discharge tonight - After discharge, 6 week follow up with [facility]YN Admission and Anticipated Discharge Date Admission Date: January 31, 2025 Supervising Physician Co-Signing Physician Notes Resident Physician Supervision Note: I was present with Dr. Zambrano during the history and exam. I discussed the case with the resident and agree with the findings and plan as documented in the note. Any exceptions or clarifications are listed here: [None] Documented By: Oneal Louis MD, FACOG Subjective 29 yo post- day 1 s/p Ambulation: ambulating normally Voiding: no voiding problems Passing Gas:: Yes Diet Tolerance:: regular diet Lochia:: Small Feeding Type:: breast feeding Current Pain Level:2/10 Resting comfortably this AM in NAD. Denies CHIU, CP, SOB, N/V/D, LE pain/swelling. Physical Exam Physical Exam: General: patient resting comfortably, NAD, non-toxic in appearance, answers questions appropriately. Skin: warm, dry, intact HEENT: NC/AT, anicteric sclera, conjunctiva without injection, moist mucus membranes. Heart: +S1/S2, regular, no m/r/g Lungs: equal air entry bilaterally, no rales/rhonchi/wheezes Abd: +BS, soft, NT/ND, uterine fundus firm at umbilicus Ext: warm, no clubbing/cyanosis or edema Neuro: nonfocal, speech intact, no facial droop, moving all extremities. Results & Data Vital Signs (Past 12 Hours) Vital Signs Temp Pulse Pulse Resp BP BP Pulse Ox 02/01/25 03:53 36.5 C 65 16 115/78 96 02/01/25 00:40 36.7 C 80 16 113/73 97 01/31/25 21:10 36.7 C 74 16 118/79 98 01/31/25 20:36 72 119/72 01/31/25 20:21 77 112/69 01/31/25 20:06 87 106/69 01/31/25 19:51 67 108/71 01/31/25 19:36 81 106/74 01/31/25 19:21 96 H 112/74 01/31/25 19:06 85 112/74 01/31/25 19:00 36.9 C 18 O2 Del Method 02/01/25 03:53 Room Air 02/01/25 00:40 Room Air 01/31/25 21:10 Room Air 01/31/25 20:36 01/31/25 20:21 01/31/25 20:06 01/31/25 19:51 01/31/25 19:36 01/31/25 19:21 01/31/25 19:06 01/31/25 19:00 Resident Activity Tracking Resident Involvement: Resident Care Provided Care Provided: OB Delivery
[2025-02-01 07:13] LABS: Hemoglobin 10.6 g/dl (12.0-16.0); Mean Corpuscular Hemoglobin 30.5 pg (25.0-34.0); Mean Corpuscular Hgb Conc 34.2 g/dL (32.0-36.0); Mean Corpuscular Volume 89.1 fL (80.0-100.0); Mean Platelet Volume 9.6 fL (9.4-12.4); Platelet Count 246 K/uL (130-400); RDW Coefficient of Variation 12.6 % (11.5-14.5); Red Blood Count 3.48 M/uL (4.20-5.40); White Blood Count 9.96 K/ul (4.8-10.8)
[2025-02-01] MEDS: PRENATAL VITAMIN 1 TAB PO SCH (07:55)
[2025-02-01 17:59] VITALS: BP 111/74; PULSE 73; TEMP 98.1
[2025-02-01] MEDS ORDERED: bisacodyL 5 MG TABEC PO SCH (20:00)
== END 2025-02-01 19:34 | disposition home or self-care (01) | DRG 807 ==
LOC: OPB 14:35 → 4S1 14:37 → 4E2 21:10
DX: Z3A.39 39 weeks gestation of pregnancy; Z37.0 Single live birth; O70.0 First degree perineal laceration during delivery